=== PATIENT | female | born 1975 | race Asian ===

== ENCOUNTER 2020-04-21 13:06 | Emergency (ER) | payer OTHER ==
[~2020-04-21] VITALS: Ht 157.5 cm; Wt 59.0 kg
[2020-04-21 13:14] VITALS: BP_SYST 122
--- NOTE | 2020-04-21 13:17 | NUR ---
AMBULATED TO BED 2
--- NOTE | 2020-04-21 13:20 | NUR ---
Pt bib from home with c/o left lower quadrant pain x2 days. Denies n/v or fever. States she thinks it was something she ate. V/S stable, pt is afebrile. Currently resting in bed, will continue to monitor.
--- NOTE | 2020-04-21 13:50 | NUR ---
ER Dr. Golden at bedside examining patient.
[2020-04-21] MEDS ORDERED: NACL 0.9% 1,000 ML IV ONE (14:15)
--- NOTE | 2020-04-21 14:25 | NUR ---
Lab at bedside for blood draw.
[2020-04-21 14:39] LABS: BASOPHILS % (AUTO) 0.3 % (0.0-2.0); EOSINOPHILS % (AUTO) 0.3 % (0.0-4.0); HEMATOCRIT 41.2 % (36-48); HEMOGLOBIN 13.9 g/dL (12.0-16.0); LYMPHOCYTES # (AUTO) 1.3 K/uL (1.0-5.5); LYMPHOCYTES % (AUTO) 17.7 % (20.5-51.5); MEAN CORPUSCULAR HEMOGLOBIN 31 pg (27-31); MEAN CORPUSCULAR HGB CONC 34 % (32-36); MEAN CORPUSCULAR VOLUME 93 fL (79.0-98.0); MONOCYTES # (AUTO) 0.6 K/uL (0.0-1.0); MONOCYTES % (AUTO) 7.9 % (1.7-9.3); NEUTROPHILS # (AUTO) 5.5 K/uL (1.8-7.7); NEUTROPHILS % (AUTO) 73.8 % (40.0-70.0); PLATELET COUNT (AUTO) 183 K/uL (130-430); RED BLOOD CELL COUNT(AUTO) 4.44 MIL/uL (4.2-6.2); RED CELL DISTRIBUTION WIDTH 12.9 % (9.0-15.0); WHITE BLOOD COUNT (AUTO) 7.5 K/uL (4.8-10.8)
--- NOTE | 2020-04-21 14:40 | NUR ---
Patient transported to radiology via wheelchair, accompanied by staff.
[2020-04-21 14:57] LABS: CALCIUM 8.3 mg/dL (8.4-11.0); CREATININE 0.6 mg/dL (0.55-1.30); POTASSIUM 4.1 mmol/L (3.5-5.1)
[2020-04-21 15:02] LABS: ALBUMIN 3.7 g/dL (3.4-4.8); TOTAL BILIRUBIN 0.6 mg/dL (0.0-1.0)
--- NOTE | 2020-04-21 15:02 | NUR ---
Pt refused IV placement and fluids, Dr. Golden aware.
--- NOTE | 2020-04-21 16:10 | NUR ---
Patient given written and verbal discharge instructions and verbalizes understanding. ER MD discussed with patient the results and treatment provided. Patient in stable condition. ID arm band removed. Rx of Motrin given. Patient educated on pain management and to follow up with PMD. Pain Scale 0. Opportunity for questions provided and answered. Medication side effect fact sheet provided.
[2020-04-21 16:12] VITALS: BP_SYST 122
== END 2020-04-21 16:12 | disposition home or self-care (01) ==
LOC: SED 13:06
DX: K63.89 Other specified diseases of intestine (principal)
CPT/HCPCS: 36415; 76376; 80053; 85025; 99284